=== PATIENT | male | born 1965 | race Caucasian/White ===

== ENCOUNTER 2017-10-23 13:44 | Emergency (ER) | payer OTHER, MEDICARE ==
[~2017-10-23] VITALS: Ht 185.4 cm; Wt 83.9 kg
[~2017-10-23 13:44] MED LIST: ALBU3IS INH; ALBU90OI6 INH; AZIT250 PO; Bactrim Ds Tab1 EACH PO; CALCAVITDA PO; CHOL10002 PO; CODGUAEL PO; CYCL10 PO; Duoneb 2.5-0.5 M3 ML INH; LISHYD2025 PO; METPRE4DP PO; OMEP40CA12 PO; PRAV20 PO; PRED10 PO; RITO100 PO; SERT25 PO; Truvada Tablet1 EACH PO; VITAMIN D31000 UNIT PO; ZIDO100 PO
[2017-10-23] MEDS ORDERED: CYCL10 PO (15:48)
== END 2017-10-23 15:57 | disposition home or self-care (01) ==
LOC: ER 13:44
DX: T14.90XA Injury, unspecified, initial encounter (principal); M54.2 Cervicalgia; J45.909 Unspecified asthma, uncomplicated; I10 Essential (primary) hypertension; F17.200 Nicotine dependence, unspecified, uncomplicated; Z88.8 Allergy status to other drugs, medicaments and biological substances; Z88.5 Allergy status to narcotic agent; Z79.899 Other long term (current) drug therapy; V49.9XXA Car occupant (driver) (passenger) injured in unspecified traffic accident, initial encounter
CPT/HCPCS: 72040; 99283

== ENCOUNTER 2018-07-23 03:30 | Emergency (ER) | payer MEDICARE, OTHER ==
[~2018-07-23] VITALS: Ht 185.4 cm; Wt 81.7 kg
[~2018-07-23 03:30] MED LIST changes: +Cleocin HCl300 MG PO
[2018-07-23] MEDS ORDERED: CEPH500 PO (04:03)
[2018-07-23] MEDS ORDERED: Bactrim Ds Tab1 EACH PO (04:03)
[2018-07-23] MEDS ORDERED: IBUP600 PO (04:03)
== END 2018-07-23 04:42 | disposition home or self-care (01) ==
LOC: ER 03:30
DX: L03.116 Cellulitis of left lower limb (principal); J45.909 Unspecified asthma, uncomplicated; J43.9 Emphysema, unspecified; I10 Essential (primary) hypertension; B20 Human immunodeficiency virus [HIV] disease; F17.200 Nicotine dependence, unspecified, uncomplicated; Z88.5 Allergy status to narcotic agent
CPT/HCPCS: 99283

== ENCOUNTER 2019-10-07 23:23 | Emergency (ER) | payer MEDICARE, OTHER ==
[~2019-10-07] VITALS: Ht 185.4 cm; Wt 81.7 kg
[~2019-10-07 23:23] MED LIST changes: +CEPH500 PO; +IBUP600 PO
[2019-10-08 01:55] LABS: Source, Urine Clean Catch
[2019-10-08 01:57] LABS: Bilirubin, Urine Neg (Neg); Blood, Urine Neg (Neg); Glucose Qualitative, Urine Neg (Neg); Ketones, Urine 1+ (Neg); Leukocyte Esterase, Urine Neg (Neg); Nitrite, Urine Neg (Neg); Protein, Urine 1+ (Neg); Urobilinogen, Urine 2+ (Normal)
[2019-10-08 02:00] LABS: Appearance, Urine Clear (Clear); Color, Urine Yellow (P-Yellow)
== END 2019-10-08 02:35 | disposition home or self-care (01) ==
LOC: ER 23:23
PROVIDERS: Physician Assistant
DX: M54.5 Low back pain (principal); Z88.5 Allergy status to narcotic agent; Z88.8 Allergy status to other drugs, medicaments and biological substances; I10 Essential (primary) hypertension; F17.210 Nicotine dependence, cigarettes, uncomplicated
CPT/HCPCS: 96372; 99283; J1885

== ENCOUNTER 2019-10-14 23:02 | Emergency (ER) | payer MEDICARE, OTHER ==
[~2019-10-14] VITALS: Ht 185.4 cm; Wt 86.2 kg
== END 2019-10-15 01:13 | disposition home or self-care (01) ==
LOC: ER 23:02
DX: M54.5 Low back pain (principal); F10.129 Alcohol abuse with intoxication, unspecified; F41.9 Anxiety disorder, unspecified; J43.9 Emphysema, unspecified; J45.909 Unspecified asthma, uncomplicated; I10 Essential (primary) hypertension; B20 Human immunodeficiency virus [HIV] disease; Z88.5 Allergy status to narcotic agent; Z88.8 Allergy status to other drugs, medicaments and biological substances; F17.200 Nicotine dependence, unspecified, uncomplicated
CPT/HCPCS: 72100; 96372; 99283-25; J1885

== ENCOUNTER 2019-11-12 19:32 | Emergency (ER) | payer MEDICARE, OTHER ==
[~2019-11-12] VITALS: Ht 185.4 cm; Wt 48.5 kg
[2019-11-12] MEDS ORDERED: TRIUMEQ TABLET1 EACH PO (19:59)
[2019-11-12] MEDS ORDERED: AMLODIPINE BES2.5 MG PO (20:00)
[2019-11-12] MEDS ORDERED: Vimpat200 MG (20:00)
[2019-11-12] MEDS ORDERED: Levetiracetam1000 MG PO (20:00)
[2019-11-12] MEDS ORDERED: LORA.5 (20:00)
[2019-11-12] MEDS ORDERED: AZELASTINE137 MCG/0. NS (20:00)
[2019-11-12] MEDS ORDERED: Simvastatin40 MG PO (20:00)
== END 2019-11-12 21:10 | disposition home or self-care (01) ==
LOC: ER 19:32
DX: M54.41 Lumbago with sciatica, right side (principal); Z88.5 Allergy status to narcotic agent; Z88.8 Allergy status to other drugs, medicaments and biological substances; B20 Human immunodeficiency virus [HIV] disease; F17.200 Nicotine dependence, unspecified, uncomplicated
CPT/HCPCS: 96372; 99282; J1885

== ENCOUNTER 2019-11-18 17:15 | Emergency (ER) | payer MEDICARE, OTHER ==
[~2019-11-18] VITALS: Ht 185.4 cm; Wt 81.7 kg
[~2019-11-18 17:15] MED LIST changes: +AMLODIPINE BES2.5 MG PO; +AZELASTINE137 MCG/0. NS; +LORA.5; +Levetiracetam1000 MG PO; +Simvastatin40 MG PO; +TRIUMEQ TABLET1 EACH PO; +Vimpat200 MG
[2019-11-18] MEDS ORDERED: Prednisone50 MG PO (17:38)
[2019-11-18] MEDS ORDERED: IBUP600 PO (17:38)
== END 2019-11-18 19:56 | disposition home or self-care (01) ==
LOC: ER 17:15
DX: M54.42 Lumbago with sciatica, left side (principal); M54.41 Lumbago with sciatica, right side; B20 Human immunodeficiency virus [HIV] disease; J43.9 Emphysema, unspecified; J45.909 Unspecified asthma, uncomplicated; I10 Essential (primary) hypertension; Z88.5 Allergy status to narcotic agent; Z88.8 Allergy status to other drugs, medicaments and biological substances; Z79.899 Other long term (current) drug therapy; F17.200 Nicotine dependence, unspecified, uncomplicated
CPT/HCPCS: 96372; 99283-25; J1100; J1885; J3010; Q0163

== ENCOUNTER 2020-03-11 01:14 | Emergency (ER) | payer MEDICARE, OTHER ==
[~2020-03-11] VITALS: Ht 185.4 cm; Wt 59.0 kg
[~2020-03-11 01:14] MED LIST changes: +Prednisone50 MG PO; +Ultram50 MG PO
== END 2020-03-11 01:36 | disposition home or self-care (01) ==
LOC: ER 01:14
DX: G89.29 Other chronic pain (principal); M54.5 Low back pain; J43.9 Emphysema, unspecified; I10 Essential (primary) hypertension; F17.200 Nicotine dependence, unspecified, uncomplicated; Z88.8 Allergy status to other drugs, medicaments and biological substances; Z88.5 Allergy status to narcotic agent; Z21 Asymptomatic human immunodeficiency virus [HIV] infection status; Z79.899 Other long term (current) drug therapy
CPT/HCPCS: 96372; 99283-25; J1885

== ENCOUNTER 2020-04-02 20:45 | Emergency (ER) | payer MEDICARE, OTHER ==
[~2020-04-02] VITALS: Ht 185.4 cm; Wt 63.5 kg
[2020-04-02] MEDS ORDERED: Ventolin/Prove6.7 GM INH (20:52)
[2020-04-02] MEDS ORDERED: SYMBICORT 16010.2 GM INH (20:53)
== END 2020-04-02 23:35 | disposition home or self-care (01) ==
LOC: ER 20:45
DX: G89.29 Other chronic pain (principal); M54.5 Low back pain; I10 Essential (primary) hypertension; J43.9 Emphysema, unspecified; F17.210 Nicotine dependence, cigarettes, uncomplicated; Z88.8 Allergy status to other drugs, medicaments and biological substances; Z88.5 Allergy status to narcotic agent; Z79.899 Other long term (current) drug therapy
CPT/HCPCS: 96372; 99283; J1885

== ENCOUNTER 2020-04-06 06:29 | Inpatient (IN) | payer MEDICARE, OTHER ==
[~2020-04-06] VITALS: Ht 185.4 cm; Wt 53.8 kg
[~2020-04-06 06:29] MED LIST changes: +SYMBICORT 16010.2 GM INH; +Ventolin/Prove6.7 GM INH
[2020-04-06 07:45] LABS: BASOPHILS ABSOLUTE AUTO 0.03 K/mm3 (0.00-0.23); BASOPHILS PERCENT AUTO 1 % (0-2); EOSINOPHILS ABSOLUTE AUTO 0.02 K/mm3 (0.00-0.68); EOSINOPHILS PERCENT AUTO 0 % (0-6); Hemoglobin 8.3 g/dL (13.5-17.5); IMMATURE GRAN ABSOLUTE AUTO 0.08 K/mm3 (0.00-0.10); IMMATURE GRAN PERCENT AUTO 1 % (0-1); LYMPHOCYTES ABSOLUTE AUTO 1.25 K/mm3 (0.84-5.20); LYMPHOCYTES PERCENT AUTO 20 % (21-46); MONOCYTES ABSOLUTE AUTO 0.45 K/mm3 (0.16-1.47); MONOCYTES PERCENT AUTO 7 % (4-13); Mean Corpuscular HGB Conc 29.6 g/dL (31.5-36.5); Mean Corpuscular Volume 95 fL (80-100); NEUTROPHILS ABSOLUTE AUTO 4.43 K/mm3 (1.96-9.15); NEUTROPHILS PERCENT AUTO 71 % (41-73); NRBC Auto 1.6 /100 WBC (0.0-0.2); Platelet Count 205 K/mm3 (150-400); RDW Coefficient Variation 20.8 % (11.7-14.2); RDW Standard Deviation 71.3 fL (35.1-46.3); Red Blood Cell Count 2.96 M/mm3 (4.30-5.90); White Blood Cell Count 6.26 K/mm3 (4.00-11.30)
[2020-04-06 08:05] LABS: Alanine Aminotransfer (ALT/SGP 10 U/L (12-78); Albumin, Blood 2.9 g/dL (3.4-5.0); Albumin/Globulin Ratio 0.7 (0.8-1.8); Anion Gap 7 mmol/L (6-16); Aspartate Aminotrans (AST/SGOT 37 U/L (12-37); Bilirubin, Total 0.3 mg/dL (0.1-1.0); Blood Urea Nitrogen 21 mg/dL (8-24); Bun/Creatinine Ratio 42.3 (12.0-20.0); CO2, Blood 23 mmol/L (21-32); Calcium, Blood 8.5 mg/dL (8.5-10.1); Chloride, Blood 104 mmol/L (98-108); Globulin, Blood 4.4 g/dL (2.2-4.0); Glomerular Filtration Rate >60 (60-); Glucose, Blood 128 mg/dL (70-99); Potassium, Blood 3.5 mmol/L (3.5-5.5); Sodium, Blood 134 mmol/L (136-145); Total Protein, Blood 7.3 g/dL (6.4-8.2)
[2020-04-06 08:12] LABS: Alk Phos 965 U/L (50-136)
[2020-04-06] MEDS ORDERED: TRIUMEQ 600-501 EACH PO (15:00)
[2020-04-06] MEDS ORDERED: Ventolin/Prove6.7 GM INH (15:00)
--- NOTE | 2020-04-06 19:37 | NUR ---
SHIFT SUMMARY: PATIENT ADMIT FROM ED THIS SHIFT. PT A&O; ANXIOUS; COOPERATIVE WITH CARE. MEDICATED FOR PAIN IN ER; NO C/O PAIN SINCE ARRIVAL ON MEDICAL. PATIENT IS HIV+. CONSULT TO DR WILSON (HEMATOLOGY/ONCOLOGY) R/T HIV+ / MYELITIS. REPORT GIVEN TO ONCOMING RN.
[2020-04-07 04:38] LABS: BASOPHILS ABSOLUTE AUTO 0.01 K/mm3 (0.00-0.23); BASOPHILS PERCENT AUTO 0 % (0-2); EOSINOPHILS ABSOLUTE AUTO 0.02 K/mm3 (0.00-0.68); EOSINOPHILS PERCENT AUTO 0 % (0-6); Hematocrit 27.1 % (37.0-53.0); Hemoglobin 8.2 g/dL (13.5-17.5); IMMATURE GRAN ABSOLUTE AUTO 0.06 K/mm3 (0.00-0.10); IMMATURE GRAN PERCENT AUTO 1 % (0-1); LYMPHOCYTES ABSOLUTE AUTO 1.17 K/mm3 (0.84-5.20); LYMPHOCYTES PERCENT AUTO 25 % (21-46); MONOCYTES ABSOLUTE AUTO 0.26 K/mm3 (0.16-1.47); MONOCYTES PERCENT AUTO 6 % (4-13); Mean Corpuscular HGB 28.6 pg (26.0-34.0); Mean Corpuscular HGB Conc 30.3 g/dL (31.5-36.5); Mean Corpuscular Volume 94 fL (80-100); Mean Platelet Volume 7.8 fL (9.1-12.4); NEUTROPHILS ABSOLUTE AUTO 3.13 K/mm3 (1.96-9.15); NEUTROPHILS PERCENT AUTO 67 % (41-73); NRBC ABSOLUTE 0.06 K/mm3 (0.00-0.02); NRBC Auto 1.3 /100 WBC (0.0-0.2); Platelet Count 174 K/mm3 (150-400); RDW Coefficient Variation 20.8 % (11.7-14.2); RDW Standard Deviation 71.4 fL (35.1-46.3); Red Blood Cell Count 2.87 M/mm3 (4.30-5.90); White Blood Cell Count 4.65 K/mm3 (4.00-11.30)
[2020-04-07 05:01] LABS: Alanine Aminotransfer (ALT/SGP 9 U/L (12-78); Albumin, Blood 2.5 g/dL (3.4-5.0); Albumin/Globulin Ratio 0.6 (0.8-1.8); Alk Phos 978 U/L (50-136); Anion Gap 6 mmol/L (6-16); Aspartate Aminotrans (AST/SGOT 66 U/L (12-37); Bilirubin, Total 0.3 mg/dL (0.1-1.0); Blood Urea Nitrogen 18 mg/dL (8-24); Bun/Creatinine Ratio 29.8 (12.0-20.0); CO2, Blood 24 mmol/L (21-32); Calcium, Blood 8.1 mg/dL (8.5-10.1); Chloride, Blood 109 mmol/L (98-108); Creatinine, Blood 0.61 mg/dL (0.60-1.20); Globulin, Blood 4.1 g/dL (2.2-4.0); Glomerular Filtration Rate >60 (60-); Glucose, Blood 120 mg/dL (70-99); Magnesium, Blood 2.1 mg/dL (1.6-2.4); Potassium, Blood 3.7 mmol/L (3.5-5.5); Sodium, Blood 139 mmol/L (136-145); Total Protein, Blood 6.6 g/dL (6.4-8.2)
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
[2020-04-07] MEDS ORDERED: MIRT30ST PO (12:57)
[2020-04-07] MEDS ORDERED: Percocet 5-3251 EACH PO (12:59)
[2020-04-07 13:09] LABS: % CD 4 POS. LYMPH. 36.5 % (30.8-58.5); ABSOLUTE CD 4 HELPER 475 /uL (359-1519); BASOS 0 % (Not Estab.); EOS 0 % (Not Estab.); HEMATOCRIT 25.5 % (37.5-51.0); HEMOGLOBIN 8.2 g/dL (13.0-17.7); IMMATURE GRANS (ABS) 0.1 x10E3/uL (0.0-0.1); IMMATURE GRANULOCYTES 1 % (Not Estab.); LYMPHS 25 % (Not Estab.); LYMPHS (ABSOLUTE) 1.3 x10E3/uL (0.7-3.1); MCH 28.4 pg (26.6-33.0); MCHC 32.2 g/dL (31.5-35.7); MCV 88 fL (79-97); MONOCYTES 6 % (Not Estab.); MONOCYTES(ABSOLUTE) 0.3 x10E3/uL (0.1-0.9); NEUTROPHILS 68 % (Not Estab.); NEUTROPHILS (ABSOLUTE) 3.3 x10E3/uL (1.4-7.0); NRBC 1 % (0 - 0); PLATELETS 219 x10E3/uL (150-450); RBC 2.89 x10E6/uL (4.14-5.80); RDW 19.5 % (11.6-15.4)
--- NOTE | 2020-04-07 15:46 | NUR ---
PATIENT DISCHARGE: PATIENT DISCHARGED TO HOME THIS SHIFT. MEDICATION RECONCILIATION COMPLETED; MED LIST FAXED TO [facility]. DISCHARGE EDUCATION COMPLETED WITH PATIENT. PATIENT TRANSPORTED TO EXIT BY [facility] WITH WHEELCHAIR AT 1445. PATIENT DEPARTED [facility] VIA PRIVATE AUTO.
== END 2020-04-07 14:55 | disposition home or self-care (01) | DRG 977 ==
LOC: ER 06:29 → MEDS 15:52 → ENPENDDIS 04-07 12:22 → MEDS 04-07 14:55
PROVIDERS: Emergency Medicine; ADMIT Internal Medicine
DX: B20 Human immunodeficiency virus [HIV] disease (principal); G05.4 Myelitis in diseases classified elsewhere; D64.9 Anemia, unspecified; J43.9 Emphysema, unspecified; F17.210 Nicotine dependence, cigarettes, uncomplicated
CPT/HCPCS: 36415; 72146; 72148; 80053; 83605; 83735; 84145; 85025; 85651; 86141; 86361; 94640; 94760; 96365; 96366; 96372-59; 96375; 99285-25; A9270-GY; J0696; J1170; J1885; J3360; J3370; J7050

== ENCOUNTER 2020-04-27 14:59 | Inpatient (IN) | payer MEDICARE, OTHER ==
[~2020-04-27] VITALS: Ht 175.3 cm; Wt 55.0 kg
[~2020-04-27 14:59] MED LIST changes: +MIRT30ST PO; +Percocet 5-3251 EACH PO; +TRIUMEQ 600-501 EACH PO
[2020-04-27 15:46] LABS: Source, Urine Catheter
[2020-04-27 15:51] LABS: Appearance, Urine Clear (Clear); Bilirubin, Urine Neg (Neg); Blood, Urine 1+ (Neg); Color, Urine Yellow (P-Yellow); Glucose Qualitative, Urine Neg (Neg); Ketones, Urine 2+ (Neg); Leukocyte Esterase, Urine 1+ (Neg); Nitrite, Urine Neg (Neg); Protein, Urine 1+ (Neg); Specific Gravity, Urine 1.025 (1.003-1.022); Urobilinogen, Urine 1+ (Normal)
[2020-04-27 16:12] LABS: Mucus Mod (0-Heavy)
[2020-04-27 16:13] LABS: Bacteria Few /hpf; Squamous Epithelial Cells Not Seen /hpf (Few)
[2020-04-27 16:36] LABS: BASOPHILS ABSOLUTE AUTO 0.04 K/mm3 (0.00-0.23); BASOPHILS PERCENT AUTO 0 % (0-2); EOSINOPHILS PERCENT AUTO 0 % (0-6); Hematocrit 32.8 % (37.0-53.0); Hemoglobin 9.6 g/dL (13.5-17.5); IMMATURE GRAN ABSOLUTE AUTO 0.18 K/mm3 (0.00-0.10); IMMATURE GRAN PERCENT AUTO 2 % (0-1); LYMPHOCYTES ABSOLUTE AUTO 0.84 K/mm3 (0.84-5.20); LYMPHOCYTES PERCENT AUTO 8 % (21-46); MONOCYTES ABSOLUTE AUTO 0.58 K/mm3 (0.16-1.47); MONOCYTES PERCENT AUTO 6 % (4-13); Mean Corpuscular HGB 28.5 pg (26.0-34.0); Mean Corpuscular HGB Conc 29.3 g/dL (31.5-36.5); Mean Corpuscular Volume 97 fL (80-100); Mean Platelet Volume 8.1 fL (9.1-12.4); NEUTROPHILS ABSOLUTE AUTO 8.44 K/mm3 (1.96-9.15); NEUTROPHILS PERCENT AUTO 84 % (41-73); NRBC ABSOLUTE 0.12 K/mm3 (0.00-0.02); NRBC Auto 1.2 /100 WBC (0.0-0.2); Platelet Count 327 K/mm3 (150-400); RDW Coefficient Variation 20.5 % (11.7-14.2); RDW Standard Deviation 72.2 fL (35.1-46.3); Red Blood Cell Count 3.37 M/mm3 (4.30-5.90); White Blood Cell Count 10.08 K/mm3 (4.00-11.30)
[2020-04-27 17:06] LABS: Alanine Aminotransfer (ALT/SGP 15 U/L (12-78); Albumin, Blood 3.5 g/dL (3.4-5.0); Albumin/Globulin Ratio 0.7 (0.8-1.8); Alk Phos 1450 U/L (50-136); Anion Gap 7 mmol/L (6-16); Aspartate Aminotrans (AST/SGOT 69 U/L (12-37); Bilirubin, Total 0.4 mg/dL (0.1-1.0); Blood Urea Nitrogen 17 mg/dL (8-24); CO2, Blood 27 mmol/L (21-32); Chloride, Blood 98 mmol/L (98-108); Creatinine, Blood 0.55 mg/dL (0.60-1.20); Globulin, Blood 4.8 g/dL (2.2-4.0); Glomerular Filtration Rate >60 (60-); Glucose, Blood 104 mg/dL (70-99); Potassium, Blood 3.9 mmol/L (3.5-5.5); Sodium, Blood 132 mmol/L (136-145); Total Protein, Blood 8.3 g/dL (6.4-8.2)
[2020-04-27 20:10] LABS: Ethanol (Alcohol), Blood, Med <3 mg/dL
[2020-04-27] MEDS ORDERED: OXYC10TA19 PO (20:21)
[2020-04-27] MEDS ORDERED: DEXA4 PO (20:22)
[2020-04-27] MEDS ORDERED: FENTANYL1 EA10 TOP (20:22)
[2020-04-27 23:33] LABS: Glucose, CSF 65 mg/dL (40-70)
[2020-04-27 23:41] LABS: Appearance, CSF Clear (Clear); Color, CSF No Color (No Color); RBC Count, CSF 54 /mm3 (0-0); WBC Count, CSF 0 /mm3 (0-5)
[2020-04-27 23:53] LABS: Lymphocytes, CSF 87 % (40-80); Monocytes, CSF 13 % (15-45)
[2020-04-28 00:26] LABS: Cryptococcus Neoformans/Gattii Not Detected (NOT DETECT); Enterovirus Not Detected (NOT DETECT); Escherichia Coli K1 Not Detected (NOT DETECT); Haemophilus Influenza Not Detected (NOT DETECT); Herpes Simplex Virus 1 Not Detected (NOT DETECT); Herpes Simplex Virus 2 Not Detected (NOT DETECT); Human Herpesvirus 6 Not Detected (NOT DETECT); Human Parechovirus Not Detected (NOT DETECT); Listeria Monocytogenes Not Detected (NOT DETECT); Neisseria Meningitidis Not Detected (NOT DETECT); Streptococcus Agalactiae Not Detected (NOT DETECT); Streptococcus Pneumoniae Not Detected (NOT DETECT); Varicella Zoster Virus Not Detected (NOT DETECT)
[2020-04-28 06:01] LABS: BASOPHILS ABSOLUTE AUTO 0.02 K/mm3 (0.00-0.23); BASOPHILS PERCENT AUTO 0 % (0-2); EOSINOPHILS PERCENT AUTO 0 % (0-6); Hematocrit 29.8 % (37.0-53.0); Hemoglobin 9.1 g/dL (13.5-17.5); IMMATURE GRAN ABSOLUTE AUTO 0.13 K/mm3 (0.00-0.10); IMMATURE GRAN PERCENT AUTO 1 % (0-1); LYMPHOCYTES ABSOLUTE AUTO 0.93 K/mm3 (0.84-5.20); LYMPHOCYTES PERCENT AUTO 10 % (21-46); MONOCYTES ABSOLUTE AUTO 0.64 K/mm3 (0.16-1.47); MONOCYTES PERCENT AUTO 7 % (4-13); Mean Corpuscular HGB 28.3 pg (26.0-34.0); Mean Corpuscular HGB Conc 30.5 g/dL (31.5-36.5); Mean Corpuscular Volume 93 fL (80-100); NEUTROPHILS ABSOLUTE AUTO 7.29 K/mm3 (1.96-9.15); NEUTROPHILS PERCENT AUTO 81 % (41-73); NRBC ABSOLUTE 0.07 K/mm3 (0.00-0.02); NRBC Auto 0.8 /100 WBC (0.0-0.2); Platelet Count 264 K/mm3 (150-400); RDW Coefficient Variation 19.9 % (11.7-14.2); RDW Standard Deviation 67.5 fL (35.1-46.3); Red Blood Cell Count 3.21 M/mm3 (4.30-5.90); White Blood Cell Count 9.01 K/mm3 (4.00-11.30)
[2020-04-28 06:25] LABS: Alanine Aminotransfer (ALT/SGP 16 U/L (12-78); Albumin/Globulin Ratio 0.7 (0.8-1.8); Anion Gap 9 mmol/L (6-16); Aspartate Aminotrans (AST/SGOT 187 U/L (12-37); Bilirubin, Total 0.5 mg/dL (0.1-1.0); Blood Urea Nitrogen 14 mg/dL (8-24); Bun/Creatinine Ratio 27.3 (12.0-20.0); CO2, Blood 24 mmol/L (21-32); Calcium, Blood 8.8 mg/dL (8.5-10.1); Chloride, Blood 97 mmol/L (98-108); Creatinine, Blood 0.51 mg/dL (0.60-1.20); Globulin, Blood 4.1 g/dL (2.2-4.0); Glomerular Filtration Rate >60 (60-); Glucose, Blood 79 mg/dL (70-99); Sodium, Blood 130 mmol/L (136-145); Total Protein, Blood 7.1 g/dL (6.4-8.2)
[2020-04-28 06:59] LABS: Alk Phos 1706 U/L (50-136)
[2020-04-28 07:10] LABS: U Benzodiazapine Screen DETECTED; U Opiates Screen DETECTED
[2020-04-28 07:11] LABS: U Amphetamine Screen Not Detected; U Barbituate Screen Not Detected; U Buprenorphine Screen Not Detected; U Cannabinoids Screen Not Detected; U Cocaine Screen Not Detected; U Methadone Screen Not Detected; U Methamphetamine Screen Not Detected; U Oxycodone Screen DETECTED; U Phencyclidine Screen Not Detected; U Propoxyphene Screen Not Detected
--- NOTE | 2020-04-28 09:47 | NUR ---
ASSUME CARE THIS AM: PT REMAINS CONFUSED ON VEST AND SOFT WRIST RESTRAINTS X2, PT UNABLE TO REPOND CLEARLY TO QUESTIONS GARBLE/MUMBLES WHEN TALKING. BUT IS ABLE TO SAY YES OR NO. VITALS HRR AT 120'S SINUS THIS MORNING BP SYSTOLIC 170'S. 5MG IV LOPRESSOR GIVEN BP SYTOLIC TREND DOWN TO 160'S. SATS ABOVE 95% ONRA, AFEBRILE. SPOKE TO PT'S MOTHER THIS MORNING FOR THE PRE MRI SCREENING QUESTIONS SINCE PT IS UNABLE TO ANSWER, MOTHER TO BRING PT'S HIV HOME MEDS AND VISIT LATER TODAY. PAIN MEDS GIVEN SINCE PT MOANS WITH MOVEMENT AND SAYS "MY BACK" ALSO HAS PAIN UPON PALPATION ON LOWER ABDOMEN. PT AWAITING FOR HEAD MRI, NS INCREASED TO 200MLS/HR. HENDERSON DRAINING VIA GRAVITY. WILL MONITOR
--- NOTE | 2020-04-28 18:05 | NUR ---
PT SUMMARY: PT CAME MORE ALERT THIS AFTERNOON, PER PT'S MOTHER PT WAS ABLE TO FINISH A BOTTLE OF 90 PILLS OXYCODONE WITHIN 4-5 DAYS LAST MONDAY, PT TOX SCREEN POSITIVE FOR OPIOIDS DR RYAN IS AWARE HEAD MRI IS CLEAR FOR ANY INFARCT, FENTANYL PATCH DC'D. TOTAL OF 3L BAG OF NS ADMINISTERED SINCE LAST NIGHT WITH 500MLS BOLUS GIVEN AT MID DAY TODAY. SOFT WRIST RESTRAINT DC'D PT REMAINS ON VEST PT IS MORE COHERENT ABLE TO STATE NAME AND , KNOWS WHERE HE'S AT, UNAWARE OF DATE AND YEAR. NO ATTEMPTS OF TRYING TO GET OUT OF BED, BUT PT NOTICED MUMBLES AND PICKS AND POINTING STUFF ON THE AIR, HALLUCINATES AT TIMES STATED "THERE'S A BEE FLYING AROUND IN HERE". PT IS MORE REDIRECTABLE ATTEMPTED TO PULL ON IV LINES AND CATHETER BUT PT WAS ABLE TO LISTEN. PT IN BED RESTING, MOANS OCCASIONALLY HEATING PAD APLIED ON BACK SEEMS EFFECTIVE. HENDERSON DRAINING HELADIO URINE VIA GRAVITY. CALL LIGHTS IN REACH. WILL REPORT TO ONCOMING SHIFT.
--- NOTE | 2020-04-29 05:33 | NUR ---
SHIFT SUMMARY PT SLEEPING IN ROOM COMFORTABLY AT THIS TIME. PT HAD NO ACUTE CHANGES IN STATUS T/O NIGHT. BILAT SOFT WIRST RESTRAINTS WERE REMOVED DURING THE NIGHT AND PT VERBALLY CONTRACTED FOR SAFETY TO NOT PULL AND TUG AT LINES. PT HAS COMPLIED FAIRLY WELL WITH OCCASIONAL REDIRECTION. ALEX VEST REMAINS IN PLACE D/T PT CONTINUED CONFUSION AND ATTEMPTS TO GET OUT OF BED. PT NEEDS REORIENTED TO PLACE AND TIME FREQUENTLY, BUT IS FOLLOWING SOME COMANDS BETTER. SATS REMAINED >92% T/O NIGHT ON RA. DENIED ANY CP. DID REPORT SOME ABD PAIN DURING NIGHT, REFUSED PAIN MEDS. PT READJUSTED IN BED AND PAIN MOSTLY RESOLVED. BED ALARM REMAINS ON FOR SAFETY. CALL LIGHT IN REACH.
[2020-04-29 15:10] LABS: % CD 4 POS. LYMPH. 39.9 % (30.8-58.5); ABSOLUTE CD 4 HELPER 279 /uL (359-1519); BASOS 0 % (Not Estab.); EOS 0 % (Not Estab.); HEMATOCRIT 31.1 % (37.5-51.0); HEMOGLOBIN 9.6 g/dL (13.0-17.7); IMMATURE GRANS (ABS) 0.1 x10E3/uL (0.0-0.1); IMMATURE GRANULOCYTES 2 % (Not Estab.); LYMPHS 8 % (Not Estab.); LYMPHS (ABSOLUTE) 0.7 x10E3/uL (0.7-3.1); MCHC 30.9 g/dL (31.5-35.7); MCV 91 fL (79-97); MONOCYTES 6 % (Not Estab.); MONOCYTES(ABSOLUTE) 0.5 x10E3/uL (0.1-0.9); NEUTROPHILS 84 % (Not Estab.); NRBC 1 % (0 - 0); PLATELETS 271 x10E3/uL (150-450); RBC 3.43 x10E6/uL (4.14-5.80); RDW 19.3 % (11.6-15.4); WBC 8.2 x10E3/uL (3.4-10.8)
--- NOTE | 2020-04-29 18:19 | NUR ---
PT SUMMARY: PT IS MORE ALERT AT BASELINE TODAY, PT HAS BEEN OFF OF RESTRAINTS THIS MORNING. TALKATIVE TO STAFF COULDN'T REMEMBER MUCH OF WHAT HAPPENED COUPLE DAYS AGO, PT FOLLOWS DIRECTION EASILY, BED ALARM ON FOR SAFETY, VITALS HAS BEEN STABLE. PT AMBULATED IN THE UNIT TWICE FOR THE SHIFT WITH NO ISSUES. RESUMED DIET TODAY, NO REPORTED ISSUES/ASPIRATION. STATUS CHANGED TO MEDICAL REPORT ALREADY GIVEN TO HAYLEE WEIR PT TO TRANSFER TO ROOM 337 AWAITING FOR ROOM TO GET CLEANED. AWAITING FOR TRANSFER
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
--- NOTE | 2020-04-30 01:58 | NUR ---
04/29/20 2200 PT LYING IN BED, EYES CLOSED, APPEARS TO BE RESTING. BREATHING IS EVEN, UNLABORED. NO APPARENT SIGNS OF DISTRESS. CALL LIGHT IS IN REACH.
--- NOTE | 2020-04-30 01:58 | NUR ---
04/29/20 2351 PT LYING IN BED, AWAKE, NO APPARENT SIGNS OF DISTRESS. DENIES NEED FOR ANYTHING AT THIS TIME. CALL LIGHT IS IN REACH.
--- NOTE | 2020-04-30 01:59 | NUR ---
PT LYING IN BED, EYES CLOSED, APPEARS TO BE RESTING. BREATHING IS EVEN, UNLABORED. NO APPARENT SIGNS OF DISTRESS. CALL LIGHT IS IN REACH.
--- NOTE | 2020-04-30 03:23 | NUR ---
PLACED SCD'S ON PT, PT WILLING TO TRY THEM AND SEE HOW THEY FEEL. WILL CHECK BACK ON PT IN A LITTLE WHILE. NO APPARENT SIGNS OF DISTRESS. CALL LIGHT IS IN REACH.
--- NOTE | 2020-04-30 04:13 | NUR ---
PT AAO X 4 MOSTLY, IS A LITTLE FORGETFUL WHEN HE FIRST WAKES UP. REPORTED PAIN IN HIPS AND BACK. GOT FENTANYL IV X 1, HAS A FENTANYL PATCH ON. PT WAS ANXIOUS AND TEARFUL AT THE START OF THE SHIFT, GOT XANAX. HENDERSON WITH LIGHT HELADIO URINE THAT IS CLEAR. SCD'S. ON RA.
--- NOTE | 2020-04-30 06:11 | NUR ---
PT LYING IN BED, EYES CLOSED, APPEARS TO BE RESTING. BREATHING IS EVEN, UNLABORED. NO APPARENT SIGNS OF DISTRESS. CALL LIGHT IS IN REACH. NO OTHER CHANGES THIS SHIFT.
[2020-04-30] MEDS ORDERED: DOCU100 PO ×2 (15:09)
[2020-04-30] MEDS ORDERED: MIRALAX17 GM PO (15:10)
[2020-04-30] MEDS ORDERED: NICO2 PO (15:10)
[2020-04-30] MEDS ORDERED: SENN187 PO (15:11)
--- NOTE | 2020-04-30 18:18 | NUR ---
PT DISCHARGED AT 1614. ALL PAPERWORK REVIEWED AND EDUCATIONAL MATERIAL SENT. PT HAS BEEN AOX4 AND INDEPENDENT IN ROOM. NO DISTRESS NOTED PT TREATED FOR PAIN PER EMAR. ALL BELONINGS WERE COLLECTED AND PT INSISTED ON WALKING OUT WITH BROTHER ON DISCHARE REFUSING TO BE ESCORTED TO EXIT.
[2020-05-01 12:09] LABS: VDRL, CSF Non Reactive (Non Rea:<1:1)
== END 2020-04-30 16:15 | disposition home or self-care (01) | DRG 917 ==
LOC: ER 14:59 → PCU 23:43 → MEDS 04-29 18:46
PROVIDERS: Emergency Medicine; Family Medicine; Internal Medicine; Physician Assistant; ADMIT Internal Medicine
PROC: 009U3ZX Drainage of Spinal Canal, Percutaneous Approach, Diagnostic (ICD-10-PCS; principal; 2020-04-27)
DX: T40.2X1A Poisoning by other opioids, accidental (unintentional), initial encounter (principal); G92 Toxic encephalopathy; B20 Human immunodeficiency virus [HIV] disease; E87.1 Hypo-osmolality and hyponatremia; R29.1 Meningismus; C79.51 Secondary malignant neoplasm of bone; C61 Malignant neoplasm of prostate; E78.00 Pure hypercholesterolemia, unspecified; F17.210 Nicotine dependence, cigarettes, uncomplicated; F32.9 Major depressive disorder, single episode, unspecified; I10 Essential (primary) hypertension; J43.9 Emphysema, unspecified; K21.9 Gastro-esophageal reflux disease without esophagitis; M54.9 Dorsalgia, unspecified; G89.29 Other chronic pain; R33.9 Retention of urine, unspecified
CPT/HCPCS: 36415; 51702; 62270; 70450; 70551; 80053; 81001; 82140; 82945; 82947; 83690; 84157; 85025; 85651; 86140; 86361; 86403; 87040; 87070; 87086; 87205; 87483; 89051; 96361-59; 96374-59; 96375-59; 96376-59; 99285-25; G0480; J0696; J1100; J1170; J1450; J1650; J2060; J2405; J3010; J3370; J7030

== ENCOUNTER → 2020-07-23 | Outpatient (CLI) | payer MEDICARE, OTHER ==
[~2020-07-23] MED LIST changes: +DEXA4 PO; +DOCU100 PO; +FENTANYL1 EA10 TOP; +MIRALAX17 GM PO; +NICO2 PO; +OXYC10TA19 PO; +SENN187 PO
[2020-07-23 16:00] LABS: BASOPHILS ABSOLUTE AUTO 0.04 K/mm3 (0.00-0.23); BASOPHILS PERCENT AUTO 1 % (0-2); EOSINOPHILS PERCENT AUTO 0 % (0-6); Hematocrit 38.5 % (37.0-53.0); Hemoglobin 11.6 g/dL (13.5-17.5); IMMATURE GRAN ABSOLUTE AUTO 0.07 K/mm3 (0.00-0.10); IMMATURE GRAN PERCENT AUTO 1 % (0-1); LYMPHOCYTES ABSOLUTE AUTO 2.18 K/mm3 (0.84-5.20); LYMPHOCYTES PERCENT AUTO 28 % (21-46); MONOCYTES ABSOLUTE AUTO 0.28 K/mm3 (0.16-1.47); MONOCYTES PERCENT AUTO 4 % (4-13); Mean Corpuscular HGB 30.1 pg (26.0-34.0); Mean Corpuscular HGB Conc 30.1 g/dL (31.5-36.5); Mean Corpuscular Volume 100 fL (80-100); Mean Platelet Volume 8.8 fL (9.1-12.4); NEUTROPHILS ABSOLUTE AUTO 5.12 K/mm3 (1.96-9.15); NEUTROPHILS PERCENT AUTO 67 % (41-73); Platelet Count 357 K/mm3 (150-400); RDW Coefficient Variation 16.2 % (11.7-14.2); RDW Standard Deviation 59.9 fL (35.1-46.3); Red Blood Cell Count 3.86 M/mm3 (4.30-5.90); White Blood Cell Count 7.69 K/mm3 (4.00-11.30)
[2020-07-23 16:41] LABS: Alanine Aminotransfer (ALT/SGP 20 U/L (12-78); Albumin, Blood 3.1 g/dL (3.4-5.0); Albumin/Globulin Ratio 0.8 (0.8-1.8); Alk Phos 949 U/L (50-136); Anion Gap 8 mmol/L (6-16); Aspartate Aminotrans (AST/SGOT 20 U/L (12-37); Bilirubin, Total 0.2 mg/dL (0.1-1.0); Blood Urea Nitrogen 11 mg/dL (8-24); Bun/Creatinine Ratio 17.1 (12.0-20.0); CO2, Blood 23 mmol/L (21-32); Calcium, Blood 8.4 mg/dL (8.5-10.1); Chloride, Blood 107 mmol/L (98-108); Creatinine, Blood 0.64 mg/dL (0.60-1.20); Glomerular Filtration Rate >60 (60-); Glucose, Blood 125 mg/dL (70-99); Sodium, Blood 138 mmol/L (136-145); Total Protein, Blood 7.1 g/dL (6.4-8.2)
[2020-07-25 14:08] LABS: % CD 4 POS. LYMPH. 35.5 % (30.8-58.5); ABSOLUTE CD 4 HELPER 746 /uL (359-1519); BASOS 0 % (Not Estab.); EOS 0 % (Not Estab.); HEMATOCRIT 36.3 % (37.5-51.0); HEMOGLOBIN 11.7 g/dL (13.0-17.7); IMMATURE GRANS (ABS) 0.1 x10E3/uL (0.0-0.1); IMMATURE GRANULOCYTES 1 % (Not Estab.); LYMPHS 29 % (Not Estab.); LYMPHS (ABSOLUTE) 2.1 x10E3/uL (0.7-3.1); MCH 30.6 pg (26.6-33.0); MCHC 32.2 g/dL (31.5-35.7); MCV 95 fL (79-97); MONOCYTES 4 % (Not Estab.); MONOCYTES(ABSOLUTE) 0.3 x10E3/uL (0.1-0.9); NEUTROPHILS 66 % (Not Estab.); PLATELETS 342 x10E3/uL (150-450); RBC 3.82 x10E6/uL (4.14-5.80); RDW 16.4 % (11.6-15.4); WBC 7.4 x10E3/uL (3.4-10.8)
[2020-07-25 16:08] LABS: HIV-1 RNA BY PCR <20 (.)
== END | disposition home or self-care (01) ==
LOC: LAB SHORT 13:31
PROVIDERS: Internal Medicine Infectious Disease
DX: B20 Human immunodeficiency virus [HIV] disease (principal)
CPT/HCPCS: 80053; 85025; 86361; 87536

== ENCOUNTER → 2021-01-19 | Outpatient (CLI) | payer MEDICARE, OTHER ==
[2021-01-19 16:31] LABS: BASOPHILS ABSOLUTE AUTO 0.05 K/mm3 (0.00-0.23); BASOPHILS PERCENT AUTO 1 % (0-2); EOSINOPHILS ABSOLUTE AUTO 0.09 K/mm3 (0.00-0.68); EOSINOPHILS PERCENT AUTO 2 % (0-6); Hemoglobin 12.9 g/dL (13.5-17.5); IMMATURE GRAN ABSOLUTE AUTO 0.03 K/mm3 (0.00-0.10); IMMATURE GRAN PERCENT AUTO 1 % (0-1); LYMPHOCYTES ABSOLUTE AUTO 1.35 K/mm3 (0.84-5.20); LYMPHOCYTES PERCENT AUTO 35 % (21-46); MONOCYTES ABSOLUTE AUTO 0.38 K/mm3 (0.16-1.47); MONOCYTES PERCENT AUTO 10 % (4-13); Mean Corpuscular HGB 31.2 pg (26.0-34.0); Mean Corpuscular HGB Conc 32.3 g/dL (31.5-36.5); Mean Corpuscular Volume 97 fL (80-100); Mean Platelet Volume 8.3 fL (9.1-12.4); NEUTROPHILS ABSOLUTE AUTO 1.96 K/mm3 (1.96-9.15); NEUTROPHILS PERCENT AUTO 51 % (41-73); Platelet Count 298 K/mm3 (150-400); RDW Coefficient Variation 14.9 % (11.7-14.2); RDW Standard Deviation 52.8 fL (35.1-46.3); Red Blood Cell Count 4.14 M/mm3 (4.30-5.90); White Blood Cell Count 3.86 K/mm3 (4.00-11.30)
[2021-01-19 16:56] LABS: Alanine Aminotransfer (ALT/SGP 16 U/L (12-78); Albumin, Blood 3.3 g/dL (3.4-5.0); Albumin/Globulin Ratio 0.9 (0.8-1.8); Alk Phos 676 U/L (50-136); Anion Gap 3 mmol/L (6-16); Aspartate Aminotrans (AST/SGOT 17 U/L (12-37); Bilirubin, Total 0.2 mg/dL (0.1-1.0); Blood Urea Nitrogen 13 mg/dL (8-24); Bun/Creatinine Ratio 15.1 (12.0-20.0); CO2, Blood 29 mmol/L (21-32); Calcium, Blood 8.1 mg/dL (8.5-10.1); Chloride, Blood 111 mmol/L (98-108); Creatinine, Blood 0.86 mg/dL (0.60-1.20); Globulin, Blood 3.7 g/dL (2.2-4.0); Glomerular Filtration Rate >60 (60-); Glucose, Blood 88 mg/dL (70-99); Potassium, Blood 3.3 mmol/L (3.5-5.5); Sodium, Blood 143 mmol/L (136-145)
== END | disposition home or self-care (01) ==
LOC: LAB 15:30 → LAB SHORT 15:30
PROVIDERS: Registered Nurse Oncology
DX: C61 Malignant neoplasm of prostate (principal); D70.1 Agranulocytosis secondary to cancer chemotherapy; T45.1X5A Adverse effect of antineoplastic and immunosuppressive drugs, initial encounter; D63.0 Anemia in neoplastic disease; R97.20 Elevated prostate specific antigen [PSA]; R53.0 Neoplastic (malignant) related fatigue; G89.3 Neoplasm related pain (acute) (chronic); C79.52 Secondary malignant neoplasm of bone marrow
CPT/HCPCS: 80053; 84153; 85025

== ENCOUNTER → 2021-08-16 | Outpatient (CLI) | payer MEDICARE, OTHER ==
[~2021-08-16] MED LIST changes: +ALBU90OI INH
[2021-08-16 14:22] LABS: BASOPHILS ABSOLUTE AUTO 0.03 K/mm3 (0.00-0.23); BASOPHILS PERCENT AUTO 0 % (0-2); EOSINOPHILS ABSOLUTE AUTO 0.01 K/mm3 (0.00-0.68); EOSINOPHILS PERCENT AUTO 0 % (0-6); Hematocrit 31.6 % (37.0-53.0); Hemoglobin 10.1 g/dL (13.5-17.5); IMMATURE GRAN ABSOLUTE AUTO 0.03 K/mm3 (0.00-0.10); IMMATURE GRAN PERCENT AUTO 0 % (0-1); LYMPHOCYTES ABSOLUTE AUTO 1.26 K/mm3 (0.84-5.20); LYMPHOCYTES PERCENT AUTO 18 % (21-46); MONOCYTES PERCENT AUTO 7 % (4-13); Mean Corpuscular HGB 35.2 pg (26.0-34.0); Mean Corpuscular Volume 110 fL (80-100); Mean Platelet Volume 8.9 fL (9.1-12.4); NEUTROPHILS ABSOLUTE AUTO 5.15 K/mm3 (1.96-9.15); NEUTROPHILS PERCENT AUTO 74 % (41-73); Platelet Count 239 K/mm3 (150-400); RDW Coefficient Variation 16.5 % (11.7-14.2); RDW Standard Deviation 66.4 fL (35.1-46.3); Red Blood Cell Count 2.87 M/mm3 (4.30-5.90); White Blood Cell Count 6.98 K/mm3 (4.00-11.30)
[2021-08-16 14:47] LABS: Alanine Aminotransfer (ALT/SGP 13 U/L (12-78); Albumin, Blood 3.2 g/dL (3.4-5.0); Albumin/Globulin Ratio 0.9 (0.8-1.8); Alk Phos 231 U/L (50-136); Anion Gap 5 mmol/L (6-16); Aspartate Aminotrans (AST/SGOT 16 U/L (12-37); Bilirubin, Total 0.3 mg/dL (0.1-1.0); Blood Urea Nitrogen 8 mg/dL (8-24); Bun/Creatinine Ratio 12.7 (12.0-20.0); CO2, Blood 25 mmol/L (21-32); Calcium, Blood 8.3 mg/dL (8.5-10.1); Chloride, Blood 109 mmol/L (98-108); Creatinine, Blood 0.63 mg/dL (0.60-1.20); Globulin, Blood 3.5 g/dL (2.2-4.0); Glomerular Filtration Rate >60 (60-); Glucose, Blood 100 mg/dL (70-99); Sodium, Blood 139 mmol/L (136-145); Total Protein, Blood 6.7 g/dL (6.4-8.2)
== END ==
LOC: LAB SHORT 13:45
PROVIDERS: Nurse Practitioner
DX: C61 Malignant neoplasm of prostate (principal)
CPT/HCPCS: 80053; 84153; 85025

== ENCOUNTER → 2021-09-06 | Outpatient (CLI) | payer MEDICARE, OTHER ==
[2021-09-06 13:42] LABS: BASOPHILS ABSOLUTE AUTO 0.03 K/mm3 (0.00-0.23); BASOPHILS PERCENT AUTO 1 % (0-2); EOSINOPHILS PERCENT AUTO 0 % (0-6); Hemoglobin 9.9 g/dL (13.5-17.5); IMMATURE GRAN ABSOLUTE AUTO 0.03 K/mm3 (0.00-0.10); IMMATURE GRAN PERCENT AUTO 1 % (0-1); LYMPHOCYTES ABSOLUTE AUTO 1.44 K/mm3 (0.84-5.20); LYMPHOCYTES PERCENT AUTO 23 % (21-46); MONOCYTES ABSOLUTE AUTO 0.76 K/mm3 (0.16-1.47); MONOCYTES PERCENT AUTO 12 % (4-13); Mean Corpuscular HGB 34.5 pg (26.0-34.0); Mean Corpuscular HGB Conc 30.9 g/dL (31.5-36.5); Mean Corpuscular Volume 112 fL (80-100); Mean Platelet Volume 8.9 fL (9.1-12.4); NEUTROPHILS ABSOLUTE AUTO 4.02 K/mm3 (1.96-9.15); NEUTROPHILS PERCENT AUTO 64 % (41-73); Platelet Count 208 K/mm3 (150-400); RDW Coefficient Variation 15.9 % (11.7-14.2); Red Blood Cell Count 2.87 M/mm3 (4.30-5.90); White Blood Cell Count 6.28 K/mm3 (4.00-11.30)
[2021-09-06 13:58] LABS: Alanine Aminotransfer (ALT/SGP 24 U/L (12-78); Albumin, Blood 3.1 g/dL (3.4-5.0); Albumin/Globulin Ratio 0.9 (0.8-1.8); Alk Phos 194 U/L (50-136); Anion Gap 5 mmol/L (6-16); Aspartate Aminotrans (AST/SGOT 29 U/L (12-37); Bilirubin, Total 0.2 mg/dL (0.1-1.0); Blood Urea Nitrogen 7 mg/dL (8-24); Bun/Creatinine Ratio 9.9 (12.0-20.0); CO2, Blood 24 mmol/L (21-32); Calcium, Blood 7.8 mg/dL (8.5-10.1); Chloride, Blood 110 mmol/L (98-108); Creatinine, Blood 0.71 mg/dL (0.60-1.20); Globulin, Blood 3.3 g/dL (2.2-4.0); Glomerular Filtration Rate >60 (60-); Glucose, Blood 91 mg/dL (70-99); Potassium, Blood 3.6 mmol/L (3.5-5.5); Sodium, Blood 139 mmol/L (136-145); Total Protein, Blood 6.4 g/dL (6.4-8.2)
== END ==
LOC: LAB SHORT 12:40
PROVIDERS: Internal Medicine Hematology & Oncology
DX: C61 Malignant neoplasm of prostate (principal); Z88.8 Allergy status to other drugs, medicaments and biological substances
CPT/HCPCS: 80053; 84153; 85025

== ENCOUNTER → 2021-12-27 | Outpatient (CLI) | payer MEDICARE, OTHER ==
[2021-12-27 14:58] LABS: BASOPHILS ABSOLUTE AUTO 0.02 K/mm3 (0.00-0.23); BASOPHILS PERCENT AUTO 0 % (0-2); EOSINOPHILS PERCENT AUTO 0 % (0-6); Hemoglobin 8.7 g/dL (13.5-17.5); IMMATURE GRAN ABSOLUTE AUTO 0.22 K/mm3 (0.00-0.10); IMMATURE GRAN PERCENT AUTO 3 % (0-1); LYMPHOCYTES PERCENT AUTO 22 % (21-46); MONOCYTES ABSOLUTE AUTO 0.71 K/mm3 (0.16-1.47); MONOCYTES PERCENT AUTO 10 % (4-13); Mean Corpuscular HGB 34.3 pg (26.0-34.0); Mean Corpuscular HGB Conc 31.1 g/dL (31.5-36.5); Mean Corpuscular Volume 110 fL (80-100); Mean Platelet Volume 9.5 fL (9.1-12.4); NEUTROPHILS ABSOLUTE AUTO 4.77 K/mm3 (1.96-9.15); NEUTROPHILS PERCENT AUTO 65 % (41-73); NRBC ABSOLUTE 0.05 K/mm3 (0.00-0.02); NRBC Auto 0.7 /100 WBC (0.0-0.2); Platelet Count 134 K/mm3 (150-400); RDW Coefficient Variation 15.9 % (11.7-14.2); RDW Standard Deviation 60.3 fL (35.1-46.3); Red Blood Cell Count 2.54 M/mm3 (4.30-5.90); White Blood Cell Count 7.32 K/mm3 (4.00-11.30)
== END | disposition home or self-care (01) ==
LOC: LAB SHORT 14:33
PROVIDERS: Internal Medicine Hematology & Oncology
DX: C61 Malignant neoplasm of prostate (principal)
CPT/HCPCS: 36415; 85025

== ENCOUNTER → 2022-03-21 | Outpatient (CLI) | payer MEDICARE, OTHER ==
[2022-03-21 13:43] LABS: BASOPHILS ABSOLUTE AUTO 0.03 K/mm3 (0.00-0.23); BASOPHILS PERCENT AUTO 0 % (0-2); EOSINOPHILS PERCENT AUTO 0 % (0-6); Hematocrit 28.4 % (37.0-53.0); Hemoglobin 8.8 g/dL (13.5-17.5); IMMATURE GRAN ABSOLUTE AUTO 0.32 K/mm3 (0.00-0.10); IMMATURE GRAN PERCENT AUTO 3 % (0-1); LYMPHOCYTES ABSOLUTE AUTO 1.44 K/mm3 (0.84-5.20); LYMPHOCYTES PERCENT AUTO 11 % (21-46); MONOCYTES ABSOLUTE AUTO 0.44 K/mm3 (0.16-1.47); MONOCYTES PERCENT AUTO 3 % (4-13); Mean Corpuscular HGB 37.8 pg (26.0-34.0); Mean Corpuscular Volume 122 fL (80-100); Mean Platelet Volume 9.7 fL (9.1-12.4); NEUTROPHILS ABSOLUTE AUTO 10.67 K/mm3 (1.96-9.15); NEUTROPHILS PERCENT AUTO 83 % (41-73); NRBC ABSOLUTE 0.04 K/mm3 (0.00-0.02); NRBC Auto 0.3 /100 WBC (0.0-0.2); Platelet Count 145 K/mm3 (150-400); RDW Coefficient Variation 17.2 % (11.7-14.2); RDW Standard Deviation 76.9 fL (35.1-46.3); Red Blood Cell Count 2.33 M/mm3 (4.30-5.90)
[2022-03-21 14:11] LABS: Albumin, Blood 3.3 g/dL (3.4-5.0); Bilirubin, Total 0.3 mg/dL (0.1-1.0); Bun/Creatinine Ratio 15.2 (12.0-20.0); Calcium, Blood 8.3 mg/dL (8.5-10.1); Creatinine, Blood 0.66 mg/dL (0.60-1.20); Globulin, Blood 3.4 g/dL (2.2-4.0); Potassium, Blood 3.7 mmol/L (3.5-5.5); Total Protein, Blood 6.7 g/dL (6.4-8.2)
== END | disposition home or self-care (01) ==
LOC: LAB 13:29 → LAB SHORT 13:29
PROVIDERS: Internal Medicine Hematology & Oncology
DX: C61 Malignant neoplasm of prostate (principal)
CPT/HCPCS: 80053; 84153; 85025

== ENCOUNTER 2022-05-03 01:57 | Day surgery (SDC) | payer MEDICARE, OTHER | END 2022-05-03 17:40 | disposition home or self-care (01) | LOC: ATC 01:57 | DX: C61 Malignant neoplasm of prostate (principal); D63.0 Anemia in neoplastic disease; C78.7 Secondary malignant neoplasm of liver and intrahepatic bile duct; C79.52 Secondary malignant neoplasm of bone marrow; I10 Essential (primary) hypertension; Z21 Asymptomatic human immunodeficiency virus [HIV] infection status; K21.9 Gastro-esophageal reflux disease without esophagitis; J45.909 Unspecified asthma, uncomplicated | CPT/HCPCS: 36415; 36430; 86850; 86900; 86901; 86923; J7040; P9016 ==